=== PATIENT | male | born 1965 | race Caucasian/White ===

== ENCOUNTER 2022-08-20 08:16 | Observation (INO) ==
--- NOTE | 2022-08-20 09:39 | History & Physical Bridge Note ---
Date of Service August 20, 2022 History & Physical Bridge Note I have examined the patient, reviewed the History & Physical and in the interval since the performance of the History & Physical I have noted the following changes of clinical significance: no changes noted Patient with typical exertional chest pain and L arm pain which has rapidly progressed over past 4 months. He had a high risk stress echo and was unable to achieve target HR. RFs include obesity, male gender, and HTN. We will have patient undergo cardiac cath +/- PCI as indicated.
[2022-08-20] MEDS ORDERED: MIDAZOLAM HCL 1 MG/ML 2ML VIAL ONE (09:41)
[2022-08-20] MEDS ORDERED: HEPARIN (PORCINE) 1000 UNIT/ML 10 ML (CATH LAB USE ONLY) ONE (09:41)
[2022-08-20] MEDS ORDERED: niCARdipine HCL INJ 2.5 MG/ML 10 ML AMP ONE (09:42)
[2022-08-20] MEDS ORDERED: fentaNYL citrate PF 100 MCG/2 ML VIAL ONE (09:42)
[2022-08-20] MEDS ORDERED: NITROGLYCERIN/D5W 100MCG/ML 20ML SYR ONE (09:42)
--- NOTE | 2022-08-20 09:42 | Pre Anesthesia Assessment ---
Date of Service August 20, 2022 Pre Sedation Assessment Vital Signs Temp Pulse Resp BP Pulse Ox O2 Del Method 08/20/22 08:43 36.8 C 70 20 143/91 H 93 Room Air Cardiovascular RRR, no murmur, no edema Respiratory normal respiratory effort, lungs clear to auscultation Pre-Sedation Airway Assessment Smoking Status: Never smoker Hx Sleep Apnea: No Short, Thick Neck: No Thyromental Distance: > or= 3.5 Finger Breadths Oral Cavity: + WNL Mallampati Class: III ASA: ASA3 NPO Status Date of Last Intake of Fluids: 08/20/22 Time of Last Intake of Fluids: 05:00 Date of Last Intake of Solid Food: 08/19/22 Time of Last Intake of Solid Foods: 18:00 Notes The planned sedation has been discussed with the patient. Informed Consent was obtained. I have identified the patient, determined the appropriateness of sedation and have assessed the patient immediately prior to the procedure. All medicine(s) and interventions are by my order.
[2022-08-20] MEDS ORDERED: ASPIRIN 81 MG CHEW ONE (10:45)
[2022-08-20] MEDS ORDERED: TICAGRELOR 90 MG TAB ONE (10:45)
--- NOTE | 2022-08-20 11:09 | Post Anesthesia Assessment ---
Date of Service August 20, 2022 Post Sedation Assessment Vital Signs Temp Pulse Resp BP Pulse Ox O2 Del Method 08/20/22 08:43 36.8 C 70 20 143/91 H 93 Room Air Recovery Score Activity: Moves 4 extremities Respiration: Deep Breath/Cough Circulation: +/-20% PreAnes Value Consciousness: Fully Awake Oxygen Saturation: > 92% On Room Air Discharge Sedation Level of Care: Fast Track Phase II Post Sedation Plan On clinical assessment, the patient appears to have tolerated the sedation without complications. Patient is recovering as anticipated. Patient will continue to be monitored by nursing and may be discharged when sedation discharge criteria are met per below protocol. Upon Completions of procedure up to 15 minutes continue every 5 minute vital signs and the P.A.R. score; then discharge to a Phase I or Fast Track to Phase II per the following guidelines: * Discharge Patient to appropriate Phase II area if PAR is 8 or greater or return to pre- procedure baseline. The post - procedure orders will be as directed. * If PAR score is less than 8 or not return to pre-procedure baseline then patient will follow Phase I monitoring till PAR is reached for Phase II. The Phase I may be done in procedure room or may call to secure a Phase I area. * If naloxone or flumazenil are used for reversal, hold in Phase I for continued monitoring from when last reversal dose was given for a minimum of 60 minutes or longer pending the nurse and/or physician discretion of patient condition before discharge to Phase II. Please call the Sedation Physician to re-evaluate and complete post-note for discharge to Phase II area. Do NOT discharge from procedure sedation or Phase 1 until post- sedation evaluation note is complete by procedure /sedation MD Sedation Discharge Instructions to be given to the patient at discharge to home. [facility] Procedure Codes (Charges) Indication for Procedure Indication for procedure: unstable angina Sedation/Anesthesia Procedure 1: Sedation/Anesthesia: 13135 Mod Sedation by the same physician;Init15 Min Child Age 5 & Up (initial 15 min (start 1012)) Total Sedation Time (minutes): 41 Procedure 2: Sedation/Anesthesia: 72208 Mod Sedation by the same physician; Ea [id number] Minutes (additional 26 min (end time 1053)) Total Sedation Time (minutes): 41
--- NOTE | 2022-08-20 11:33 | Cardiac Catheterization ---
ACC Data: Kitchen Worker Cardiac Status Clinical evaluation leading to the procedure CAD Presenation: Unstable angina Anginal Classification: CCS IV Heart Failure: No Cardiogenic Shock within 24 Hours: No Cardiac Arrest within 24 Hours: No Imaging Studies Past 6 Months: Yes Stress Studies Past 6 Months: Yes Stress Echocardiogram: Yes - Positive and Risk/Extent of Ischemia (High) Coronary Anatomy Left Main (% Stenosis): Normal LAD (% Stenosis): Proximal (30% diffuse) and Mid (99%) D1 (% Stenosis): Normal Circumflex (% Stenosis): Normal OM1 (% Stenosis): Normal OM2 (% Stenosis): Normal RCA (% Stenosis): Normal R PDA (% Stenosis): Normal R PL1 (% Stenosis): Normal Left Ventricular Angiography EF (%): 50 to 55% Wall Motion: Apical (Mild hypokinesis) Diagnostic Physicians Name: Mj Morrison MD, PhD Closure Device Percutaneous Entry Location: Radial Closure Device: Radial Band Recommendations: PCI without planned CABG PCI Indication: Unstable Angina Lesion Segment Name: Mid LAD Culprit Artery: Yes Stenosis Prior to Rx (%): 99% Chronic Total Occlusion: No Pre-Procedure EVENS Flow: 1 Previously Treated Lesion: No Lesion Complexity: Non-High/Non-C Lesion Length (mm): 15 mm Thrombus Present: No Bifurcation Lesion: No Guidewire Across Lesion: Yes Intraprocedure Events Significant Disection: No Perforation: No Cardiac Cath Procedure Full Procedure Date August 20, 2022 Pre-Procedure Diagnosis Pre-Procedure Diagnosis: Positive Stress Test AUC Score AUC Score: 07 Post-Procedure Diagnosis Post-Procedure Diagnosis: Severe CAD Procedure(s) Performed Procedure(s) Performed: Coronary Angiography, Left Heart Cath, LV Angiography and Drug Eluting Stent Shade Cutter Mj Morrison MD, PhD Estimated Blood Loss Estimated Blood Loss: 10 mL Medication(s) Medication(s): Fentanyl, Heparin, Lidocaine 1%, Nicardipine, Nitroglycerin and Versed Summary of Findings Brief description: Patient was brought to the cardiac catheterization suite where he was shaved and prepped in a sterile fashion. Sedated using IV Versed and fentanyl. Soft tissues of the right wrist were anesthetized using 2 mL of 1% Xylocaine. The right radial artery was accessed using a modified Seldinger technique and a 6 Lithuanian radial artery glide sheath was placed. Patient was provided anticoagulation with IV heparin and antispasmodics including nicardipine and nitroglycerin. All catheters were advanced and exchanged over a 0.035 J-tip wire. Left coronary angiography was performed in orthogonal views with a 5 Lithuanian Cranford 4 diagnostic catheter. Right coronary angiography was performed in orthogonal views with a 5 Lithuanian Cranford 4 diagnostic catheter. Left heart cath and left ventriculogram were performed with a 5 Lithuanian angled pigtail catheter. Diagnostic catheters were removed and we proceeded with PCI. ACT was checked and additional heparin provided to maintain therapeutic anticoagulation. A 6 Lithuanian EBU 3.0 guide catheter was used to engage the left main coronary artery. A BMW reversal guidewire was advanced and positioned distal to the lesion in the LAD. The lesion was predilated using a 2.5 x 12 mm PTCA balloon with multiple inflations up to 14 andres. The lesion was stented using a 3.0 x 22 mm Jose Luis drug-eluting stent deployed at nominal pressure. A second inflation was performed up to 16 andres. The stent was postdilated using a 3.25 x 8 mm noncompliant balloon in the proximal and mid segments (15 andres, 18 andres, 21 andres including mid, proximal to mid, and proximal respectively). Angiography post PCI was performed after removal of balloon and with the guidewire in place and removed in orthogonal views. Guide catheter was then removed. Radial artery sheath was removed. Hemostasis was obtained using the TR band. Patient was hemodynamically stable and asymptomatic. He was provided 180 mg of p.o. Brilinta and 81 mg of aspirin. Plan to initiate additional medications on arrival to recovery. This ended the case. Angiographic findings: LMT: Large caliber short vessel bifurcating into the LAD and circumflex. Mild luminal irregularities. LAD: Large caliber and transapical. Provides a septal branch and then a large branching first diagonal. The mid LAD has mild diffuse disease of approximately 30%. The mid LAD has diffuse disease but with a focal severe lesion of 99%. The distal LAD has mild scattered plaques and there is EVENS I flow beyond the mid LAD lesion. Mild luminal irregularities in the remainder of the LAD and its branches. LCx: This is large caliber and nondominant. Travels in the AV groove where it gives an atrial branch and a small OM1 which has mild irregularities. Then, as it travels more distally the circumflex essentially becomes a large branching OM 2. There is no more than mild luminal irregularities in the remainder of the circumflex and its branches. RCA: This is large caliber and dominant. It bifurcates distally into a large PDA and a large branching posterior lateral. There are mild scattered plaques in the RCA and its branches. Left ventriculogram: LVEF is 50 to 55% There is apical hypokinesis 1+ mitral regurgitation PCI of the LAD: 0% residual stenosis post PCI EVENS-3 flow post PCI No evidence of dissection or perforation post PCI Summary: 1. Severe LAD stenosis, culprit for symptoms. 2. Low normal LVEF with apical hypokinesis consistent with recent event. 3. Successful PCI with implantation of a drug-eluting stent to the LAD Hemodynamics Rest Ao:: 106/83 mmHg, mean 95 mmHg Final Ao: 119/84 mmHg, mean 95 mmHg LV: 118/5 mmHg, LVEDP 13 mmHg Recommendations Recommendations: PCI without planned CABG Radiation Exposure (mGy) 2137 mGy, fluoroscopy time 9.4 minutes Contrast (mls) 166 mL Anesthesia 1 mg IV Versed, 50 mcg IV fentanyl Procedural Complication(s) None Disposition Recovery Room\PACU I attest to the content of the Intraoperative Record and any orders documented therein. Any exceptions are noted below. [employer] Card Cath Procedure Codes Cardiac Catheterization Procedure 1: Cardiovascular Cath Procedures: 86112 Coronaries and LHC (+/-LV) Moderate Sedation Procedure 1: Sedation/Anesthesia: 85144 Mod Sedation by the same physician;Init15 Min Child Age 5 & Up (Initial 15-minute (start time 1012)) Procedure 2: Sedation/Anesthesia: 51940 Mod Sedation by the same physician; Ea [id number] Minutes (Additional 26 min (end time 1053)) Stenting Procedure 1: Cardiovascular Stent Procedures: 38161 Perc transcatheter placement of intracoronary stent(s), with ang (LAD) PG Care Time/CCT Total # of Minutes Spent Total Time Spent with Patient: Total time spent is greater than 50% in coordination of care (as documented) at patient's floor/unit and/or counseling patient:
[2022-08-20] MEDS: ATORVASTATIN 40 MG TAB PO SCH (12:59)
--- NOTE | 2022-08-20 17:33 | XCELERA ---
[id number]
[2022-08-20] MEDS ORDERED: NITROGLYCERIN SL 0.4 MG/TAB TAB SL STA (17:44)
[2022-08-20] MEDS ORDERED: ACETAMINOPHEN 325 MG TAB PO PRN (18:21)
[2022-08-20] MEDS: METOPROLOL TARTRATE 25 MG TAB PO SCH (20:20)
[2022-08-20] MEDS: TICAGRELOR 90 MG TAB PO SCH (20:20)
[2022-08-21 06:33] LABS: Basophils # (auto) 0.06 K/uL (0-0.2); Basophils % (auto) 0.6 %; Eosinophils # (auto) 0.14 K/uL (0-0.50); Eosinophils % (auto) 1.4 %; Hematocrit (blood only) 42.4 % (42.0-52.0); Hemoglobin 15.1 g/dl (14.0-18.0); Immature Granulocytes # (auto) 0.07 K/uL (0.01-0.20); Immature Granulocytes % (auto) 0.7 %; Lymphocytes # (auto) 1.65 K/uL (1.2-3.4); Lymphocytes % (auto) 16.6 %; Mean Corpuscular Hemoglobin 30.9 pg (25.0-34.0); Mean Corpuscular Hgb Conc 35.6 g/dL (32.0-36.0); Mean Corpuscular Volume 86.9 fL (80.0-100.0); Mean Platelet Volume 9.1 fL (9.4-12.4); Monocytes # (auto) 1.08 K/uL (0.11-0.59); Monocytes % (auto) 10.9 %; Neutrophils # (auto) 6.95 K/uL (1.40-6.50); Neutrophils % (auto) 69.8 %; Platelet Count 345 K/uL (130-400); RDW Coefficient of Variation 13.1 % (11.5-14.5); RDW Standard Deviation 40.8 fL (36.4-46.3); Red Blood Count 4.88 M/uL (4.70-6.10); White Blood Count 9.95 K/ul (4.8-10.8)
[2022-08-21 06:51] LABS: BUN Creatinine Ratio 17.6 (10-20); Calcium 8.8 mg/dl (8.6-10.3); Creatinine Clr Calc Pharmacy 120.3 ml/min; Est GFR (African American) 112.1 ml/min; Est GFR (Non-African American) 96.7 ml/min; Potassium 3.1 mmol/L (3.5-5.1)
[2022-08-21] MEDS ORDERED: POTASSIUM CHLORIDE CRTAB 20 MEQ TABCR PO STA (07:22)
--- NOTE | 2022-08-21 07:29 | Hospitalist Consultation ---
Date of Consultation August 21, 2022 Assessment & Plan (1) CAD in [place] artery: Admitted following cardiac catheterization for progressive chest pain symptoms w/ exertional chest pain and L arm pain which has rapidly progressed over past 4 months. High risk stress echo and was unable to achieve target HR ECHO w/ low normal EF 50-55% with mid-distal LAD territory wall motion abnormalities POD#1 s/p PCI with implantation of a drug-eluting stent to the LAD Placed on ASA/Brillinta, lipitor 40mg, metoprolol 25mg BID (2) Chest pain: as above, s/p PCI to LAD (3) Hypertension: On atenolol-chlorthalidone at home --> now on metoprolol 25mg BID given #1 BP currently acceptable 131/86 (4) Hypokalemia: chemistries this morning with K 3.1 -- 40meq PO supplementation ordered. Mag level ordered/replacement as indicated History of Present Illness Reason for Consultation: medical management Requesting Physician: Dr Morrison Attending Physician: Mj Morrison MD, PhD History of Present Illness 57yo male with PMHx significant for HTN presented for cardiac catheterization after abnormal stress/unable to achieve target HR and progressive chest pain/exertional symptoms for the past four months, concerning for underlying CAD. Allergies Allergy/AdvReac Type Severity Reaction Status Date / Time No Known Allergies Allergy Verified 12/25/20 11:37 Home Medications Medication Instructions Recorded Confirmed Type atenolol 50 mg-chlorthalidone 25 1 tab PO QAM 12/16/20 08/20/22 History mg tablet aspirin 81 mg tablet 81 mg PO DAILY 08/20/22 08/20/22 History vitamin A-vitamin C-vit E-min 1 tab PO DAILY 08/20/22 08/20/22 History tablet Patient History Medical History (Updated 08/21/22 @ 07:24 by Citlalli Adorno PA-C) Hypertension Surgical History History of arthroscopy of left knee History of arthroscopy of right knee History of arthroscopy of right shoulder History of colonoscopy History of open reduction and internal fixation (ORIF) procedure RLE Family History Other No family history of adverse response to anesthesia Social History Smoking Status: Never smoker Second Hand Exposure: No; Hx Alcohol Use: Yes Hx Substance Use: No Preferred Language: Tongan Communication Ability: Effective Fr[employer] House Cook Required: No Beliefs That Will Affect Care: None Current Living Situation: Spouse Other Information That Helps Us Care for You: No Feels Safe at Home: Yes Safety Concerns: Feels Safe At This Time Assistive Devices: None Results & Data Results & Data Vital Signs (Past 12 Hours) Vital Signs Temp Pulse Pulse Resp BP Pulse Ox O2 Del Method 08/21/22 03:19 36.8 C 64 16 126/79 97 Room Air 08/20/22 22:56 36.8 C 64 18 119/79 96 Room Air 08/20/22 22:48 62 Laboratory Results 08/21/22 08/21/22 08/21/22 Range/Units 06:09 06:09 06:09 WBC 9.95 (4.8-10.8) K/ul RBC 4.88 (4.70-6.10) M/uL Hgb 15.1 (14.0-18.0) g/dl Hct 42.4 (42.0-52.0) % MCV 86.9 (80.0-100.0) fL MCH 30.9 (25.0-34.0) pg MCHC 35.6 (32.0-36.0) g/dL RDW Std Deviation 40.8 (36.4-46.3) fL RDW Coeff of Penny 13.1 (11.5-14.5) % Plt Count 345 (130-400) K/uL MPV 9.1 L (9.4-12.4) fL Immature Gran % (Auto) 0.7 % Neut % (Auto) 69.8 % Lymph % (Auto) 16.6 % [place] % (Auto) 10.9 % Eos % (Auto) 1.4 % Baso % (Auto) 0.6 % Neut # (Auto) 6.95 H (1.40-6.50) K/uL Lymph # (Auto) 1.65 (1.2-3.4) K/uL [place] # (Auto) 1.08 H (0.11-0.59) K/uL Eos # (Auto) 0.14 (0-0.50) K/uL Baso # (Auto) 0.06 (0-0.2) K/uL Immature Gran # (Auto) 0.07 (0.01-0.20) K/uL Activ Coag Time Kaolin (94-140) SECONDS Sodium 136 (136-145) mmol/L Potassium 3.1 L (3.5-5.1) mmol/L Chloride 100 (98-107) mmol/L Carbon Dioxide 30 (21-32) mmol/L Anion Gap 6 (3-11) BUN 15 (6-23) mg/dl Creatinine 0.85 (0.6-1.4) mg/dl Est Cr Clr Drug Dosing 120.3 ml/min Est GFR ( Amer) 112.1 ml/min Est GFR (Non-Af Amer) 96.7 ml/min BUN/Creatinine Ratio 17.6 (10-20) Glucose 102 H (70-99(Fasting)) mg/dl Estimat Average Glucose Pending Hemoglobin A1c Pending Calcium 8.8 (8.6-10.3) mg/dl Triglycerides 94 (0-150) mg/dl Cholesterol 171 (0-200) mg/dl LDL Cholesterol, Calc 109 mg/dl VLDL Cholesterol, Calc 19 (0-30) mg/dl HDL Cholesterol 43 mg/dl Cholesterol/HDL Ratio 4.0 (0-5) 08/20/22 Range/Units 10:38 WBC (4.8-10.8) K/ul RBC (4.70-6.10) M/uL Hgb (14.0-18.0) g/dl Hct (42.0-52.0) % MCV (80.0-100.0) fL MCH (25.0-34.0) pg MCHC (32.0-36.0) g/dL RDW Std Deviation (36.4-46.3) fL RDW Coeff of Penny (11.5-14.5) % Plt Count (130-400) K/uL MPV (9.4-12.4) fL Immature Gran % (Auto) % Neut % (Auto) % Lymph % (Auto) % [place] % (Auto) % Eos % (Auto) % Baso % (Auto) % Neut # (Auto) (1.40-6.50) K/uL Lymph # (Auto) (1.2-3.4) K/uL [place] # (Auto) (0.11-0.59) K/uL Eos # (Auto) (0-0.50) K/uL Baso # (Auto) (0-0.2) K/uL Immature Gran # (Auto) (0.01-0.20) K/uL Activ Coag Time Kaolin 311 H (94-140) SECONDS Sodium (136-145) mmol/L Potassium (3.5-5.1) mmol/L Chloride (98-107) mmol/L Carbon Dioxide (21-32) mmol/L Anion Gap (3-11) BUN (6-23) mg/dl Creatinine (0.6-1.4) mg/dl Est Cr Clr Drug Dosing ml/min Est GFR ( Amer) ml/min Est GFR (Non-Af Amer) ml/min BUN/Creatinine Ratio (10-20) Glucose (70-99(Fasting)) mg/dl Estimat Average Glucose Hemoglobin A1c Calcium (8.6-10.3) mg/dl Triglycerides (0-150) mg/dl Cholesterol (0-200) mg/dl LDL Cholesterol, Calc mg/dl VLDL Cholesterol, Calc (0-30) mg/dl HDL Cholesterol mg/dl Cholesterol/HDL Ratio (0-5) PG Care Time/CCT Total # of Minutes Spent Total Time Spent with Patient: Total time spent is greater than 50% in coordination of care (as documented) at patient's floor/unit and/or counseling patient: Coding Diagnoses CAD in [place] artery I25.10 Chest pain R07.9 Hypertension I10 Hypokalemia E87.6
[2022-08-21] MEDS: TICAGRELOR 90 MG TAB PO SCH (08:02)
[2022-08-21] MEDS: ATORVASTATIN 40 MG TAB PO SCH (08:02)
[2022-08-21] MEDS: METOPROLOL TARTRATE 25 MG TAB PO SCH (08:02)
[2022-08-21] MEDS ORDERED: ASPIRIN 81 MG ECTAB PO SCH (09:00)
[2022-08-21 09:10] LABS: Estimated Average Glucose 108 mg/dl; Hemoglobin A1C 5.4 % (4.5-5.6)
--- NOTE | 2022-08-21 09:10 | Communication Note ---
Date of Service: August 21, [address] Prince sultana stable and plans for d/c o appropriate medications. No consult done yesterday, and he plans to cancel consult for hospitalist group. To call with any questions/concerns.
[2022-08-21] MEDS ORDERED: ISOSORBIDE MONO EXTENDED REL 30 MG TABCR PO ONE (09:17)
--- NOTE | 2022-08-21 10:34 | Discharge Summary ---
Date of Service August 21, 2022 Admission HPI Per Admitting Provider Patient was referred for outpatient cardiac catheterization secondary to progressive/unstable angina and an abnormal stress test. He underwent diagnostic coronary angiography revealing severe LAD stenosis. This was treated with drug-eluting stent implantation. He was therefore admitted under observation status post PCI. He had some mild postprocedural chest pain which was intermittent and adequately treated with nitroglycerin. He was initiated on guideline directed medical therapy for secondary prevention of coronary disease including aspirin, beta-leroy, and high intensity statin. Labs were checked on the following morning postprocedure day 1 and he had mild hypokalemia which was treated with potassium supplementation. He had no further chest pain. His lipid panel demonstrated LDL cholesterol of 109. He was hemodynamically stable and deemed appropriate for discharge on the morning of 08/21/2022. Admission Exam (Per Admitting) Constitutional WD/WN, vitals as above (Obese) Neck Thick. No JVD Respiratory Clear to auscultation bilaterally. No wheezing, rhonchi, or rales. Cardiovascular Regular rate and rhythm. S4 gallop. No rubs or murmurs. Musculoskeletal no cyanosis or clubbing, extremities motor strength 5/5 (Radial access site is clean dry and intact. Good distal perfusion.) Neurologic Cognition intact. Speech is fluent. No focal deficits. Psychiatric A+Ox3, euthymic affect Specialty Data Cardiology 99% occluded mid LAD. Remainder of his coronaries without significant disease. Successful PCI of the mid LAD. Echo with low normal EF. No significant valvular pathology. Wall motion abnormalities consistent with mid to distal LAD territory ischemia/infarct. Discharge Data Procedures Performed Operation Date: 08/20/22 09:30 Actual Procedures p Cath, Left with Cors and Vent - Mj Morrison MD, PhD s Drug Eluting Stent SGl Vessel - Mj Morrison MD, PhD s Ultrasound Vascular Access - Mj Morrison MD, PhD Hospital Course (1) CAD in [place] artery: Status post PCI with drug-eluting stent. Dual antiplatelet therapy with aspirin and Brilinta. Guideline directed medical therapy including beta-leroy and high intensity statin therapy. Imdur for angina. Patient will follow-up in the cardiology office next week. Appointment is scheduled for 1145 on 08/26/2022. Plan Patient admitted for rapidly progressive typical angina and abnormal stress test. Cardiac cath demonstrating severe mid LAD stenosis treated with PCI using drug- eluting stent Echocardiogram demonstrating low normal EF and wall motion abnormalities consistent with the LAD stenosis Postprocedural chest discomfort, intermittent, and successfully treated with nitroglycerin Guideline directed medical therapy was initiated with aspirin, beta-leroy, statin. Anginal regimen also included addition of isosorbide mononitrate Dual antiplatelet therapy with aspirin 81 mg daily and Brilinta 90 mg p.o. twice daily was initiated and will continue for at least 1 year. No complications. Blood pressure and heart rate are at target at the time of discharge. Discharge Instructions See discharge orders/instructions. Coding Level of Care Code 59222 INP/OBS DISCH >30 MIN Diagnoses CAD in [place] artery I25.10
--- NOTE | 2022-08-21 17:52 | Electrocardiogram Report ---
Test Reason : Blood Pressure : / mmHG Vent. Rate : 056 BPM Atrial Rate : 056 BPM P-R Int : 208 ms QRS Dur : 082 ms QT Int : 438 ms P-R-T Axes : 031 036 071 degrees QTc Int : 422 ms Sinus bradycardia possible old inferior [place] Abnormal ECG When compared with ECG of 01-APR-2020 15:37, QRS duration has decreased Confirmed by aJylan Hamilton ([id number]) on 08/21/2022 5:52:23 PM Referred By: Oliver Hamilton Confirmed By:Oliver Hamilton
--- NOTE | 2022-08-21 18:02 | Electrocardiogram Report ---
Test Reason : Blood Pressure : / mmHG Vent. Rate : 077 BPM Atrial Rate : 077 BPM P-R Int : 188 ms QRS Dur : 102 ms QT Int : 430 ms P-R-T Axes : 036 039 032 degrees QTc Int : 486 ms Normal sinus rhythm Poor R wave progression, consider anterior OR vs. lead placement vs. LVH Abnormal ECG When compared with ECG of 20-AUG-2022 11:19, (unconfirmed) Serial changes of evolving Anteroseptal infarct Present Confirmed by Jaylan Hamilton ([id number]) on 08/21/2022 6:01:09 PM Referred By: Oliver Hamilton Confirmed By:Oliver Hamilton
[2022-08-22] MEDS ORDERED: ISOSORBIDE MONO EXTENDED REL 30 MG TABCR PO SCH (09:00)
== END 2022-08-21 11:04 | disposition home or self-care (01) ==
LOC: 2S 08:16 → CC 08:16